=== PATIENT | male | born 1955 | race Caucasian/White ===

== ENCOUNTER 2017-02-24 16:01 | Emergency (ER) | payer OTHER ==
[2017-02-24 16:25] VITALS: BP 116/64; PULSE 65; TEMP 98.3; BMI 30.7
--- NOTE | 2017-02-24 17:34 | PDOC ---
History of Present Illness - General Chief Complaint: Eye Problem Stated Complaint: EYE PROBLEM Time Seen by Provider: 02/24/17 16:45 History Source: Patient - History of Present Illness Timing/Duration: other (2 days ago) Past History - Past Medical History Allergies/Adverse Reactions: Allergies Allergy/AdvReac Type Severity Reaction Status Date / Time No Known Allergies Allergy Verified 02/24/17 16:21 Home Medications: Ambulatory Orders No Home Medications 0 dose .ROUTE UTDICT 04/05/13 Cardiac Disorders: Yes ([place],STENT PLACEMENT) Diabetes: Yes HTN: Yes - Surgical History Abdominal Surgery: Yes (HERNIA X2) Cardiac Surgery: Yes (X1) - Psycho/Social/Smoking Cessation Hx Suicidal Ideation: No Smoking Status: Yes Smoking History: Current every day smoker Have you smoked in the past 12 months: Yes Number of Cigarettes Smoked Daily: 20 Information on smoking cessation initiated: No Review of Systems - Review of Systems HEENTM: Yes: Tearing. No: Eye Pain, Blurred Vision *Physical Exam - Vital Signs Last Vital Signs Temp Pulse Resp BP Pulse Ox 98.3 F 65 19 116/64 96 02/24/17 16:21 02/24/17 16:21 02/24/17 16:21 02/24/17 16:21 02/24/17 16:21 - Physical Exam General Appearance: Yes: Appropriately Dressed. No: Apparent Distress HEENT: positive: Normal Voice, Other (small black fb over R cornea in the 3 0 clock position, no fb under lid) Neck: positive: Tender, Supple Respiratory/Chest: negative: Respiratory Distress Integumentary: positive: Dry, Warm Neurologic: positive: Fully Oriented, Alert, Normal Mood/Affect Medical Decision Making - Medical Decision Making 02/24/17 17:28 62 yo M, no sig hx, here w/ fb sensation to R eye. Patient states he was helping a friend "cut up some metal" from the roof of his basement last 2 days ago and felt something go in his eye, but not sure what it was. States he irrigated eye with water and felt better, but then at some point started to have FB sensation w/ tearing. Denies any sig pain, photophobia, discharge or visual changes See exam FB to R eye Seen grossly as small black fb over cornea in the 3 0' clock position, ? metal, + uptake adjacently w/ meek lamp Unsuccessful retrieval w/ tetracaine and wet swab Will c/w optho to arrange eval today or tomorrow -erythromycin ointment for ? corneal abrasion -tetanus UTD 02/24/17 17:38 02/24/17 18:23 Case d/w Dr Johnson, who agrees w/ abx ointment and states pt to call office tomorrow to be seen. Pt given ointment in ED to go home with 02/24/17 18:26 *DC/Admit/Observation/Transfer Diagnosis at time of Disposition: Foreign body in eye Qualifiers: Encounter type: initial encounter Laterality: right Qualified Code(s): T15.91XA - Foreign body on external eye, part unspecified, right eye, initial encounter - Discharge Dispostion Disposition: HOME Condition at time of disposition: Good - Patient Instructions Printed Discharge Instructions: Corneal Abrasion Additional Instructions: Use erythromycin as directed and call Dr Chen of ophthalmology tomorrow after 10am at [phone] for an appointment Instill 1 cm ribbon of erythromycin ointment into affected eye every 4 hrs until for 7 days
[2017-02-24] MEDS ORDERED: ERYTHROMYCIN 0.5% OPHTHALMIC OINTMENT 3.5 GM TUBE ONE (18:27)
== END 2017-02-24 18:50 | disposition home or self-care (01) ==
LOC: JERFT 16:01
PROC: 08C8XZZ Extirpation of Matter from Right Cornea, External Approach (ICD-10-PCS; principal; 2017-02-24)
DX: T15.01XA Foreign body in cornea, right eye, initial encounter (principal); X58.XXXA Exposure to other specified factors, initial encounter; Y93.H3 Activity, building and construction; Y92.89 Other specified places as the place of occurrence of the external cause
CPT/HCPCS: 99281-25

== ENCOUNTER 2017-04-21 09:38 | Emergency (ER) | payer OTHER ==
[2017-04-21 09:43] VITALS: BP 145/80; PULSE 73; TEMP 98.7; BMI 30.7
--- NOTE | 2017-04-21 11:10 | PDOC ---
History of Present Illness - General Chief Complaint: Laceration Stated Complaint: LACERATED LT FINGER Time Seen by Provider: 04/21/17 10:02 History Source: Patient Exam Limitations: No Limitations - History of Present Illness Initial Comments: 04/21/17 11:03 Was using denies, slipped and excise the distal tip of his left fourth digit. 04/21/17 14:44 Occurred: reports: just prior to arrival Severity: reports: mild (left fourth digit) Pain Location: reports: none, upper extremity Method of Injury: Yes: direct blow Modifying Factors: improves with: None Associated Symptoms (Fall): denies symptoms Past History - Travel Traveled outside of the country in the last 30 days: No Close contact w/someone who was outside of country & ill: No - Past Medical History Allergies/Adverse Reactions: Allergies Allergy/AdvReac Type Severity Reaction Status Date / Time No Known Allergies Allergy Verified 04/21/17 09:43 Home Medications: Ambulatory Orders No Home Medications 0 dose .ROUTE UTDICT 04/05/13 Cardiac Disorders: Yes ([place],STENT PLACEMENT) Diabetes: Yes HTN: Yes - Surgical History Abdominal Surgery: Yes (HERNIA X2) Cardiac Surgery: Yes (X1) - Suicide/Smoking/Psychosocial Hx Smoking Status: Yes Smoking History: Current every day smoker Have you smoked in the past 12 months: Yes Number of Cigarettes Smoked Daily: 20 Information on smoking cessation initiated: Yes 'Breaking Loose' booklet given: 04/21/17 Hx Alcohol Use: No Drug/Substance Use Hx: No Substance Use Type: None Trauma Specific PMHX - Complaint Specific PMHX Back Injury: No Neck Injury: No Review of Systems - Review of Systems Able to Perform ROS?: Yes Is the patient limited Polish proficient: Yes Constitutional: Yes: Symptoms Reported, See HPI, Malaise HEENTM: No: Symptoms Reported Respiratory: No: Symptoms reported Musculoskeletal: Yes: Symptoms Reported, See HPI Integumentary: Yes: Symptoms Reported, See HPI All Other Systems: Reviewed and Negative *Physical Exam - Vital Signs Last Vital Signs Temp Pulse Resp BP Pulse Ox 98.7 F 73 19 145/80 100 04/21/17 09:41 04/21/17 09:41 04/21/17 09:41 04/21/17 09:41 04/21/17 09:41 - Physical Exam General Appearance: Yes: Nourished, Appropriately Dressed, Apparent Distress, Mild Distress HEENT: positive: OLIVE, Normal ENT Inspection, TMs Normal, Pharynx Normal Neck: positive: Supple Musculoskeletal: positive: Normal Inspection Extremity: positive: Normal Capillary Refill Integumentary: positive: Other (1 cm laceration to the distal tip of left fourth digit. No pulsatile bleeding, has full range of motion to finger and sensation intact) Neurologic: positive: community associate II-XII NML intact, Fully Oriented, Alert, Normal Mood/ Affect, Normal Response, Motor Strength 5/5 Procedures - Laceration/Wound Repair Left Finger Wound Length: to 2.5 cm Wound Explored: clean Wound's Depth, Shape: superficial Irrigated w/ Saline: Yes Progress Note - Progress Note Progress Note: Gelfoam applied to avulsion laceration with good hemostasis achieved, bulky dressing and splint applied. *DC/Admit/Observation/Transfer Diagnosis at time of Disposition: Laceration - Discharge Dispostion Disposition: HOME Condition at time of disposition: Stable Admit: No - Referrals Referrals: Mindi Almazan MD [Primary Care Provider] - - Patient Instructions Printed Discharge Instructions: DI for Laceration Repair Additional Instructions: Rest, elevate, avoid strenuous activity or heavy lifting until healed Leave dressing on for the next 48 hours, Then may remove outer Telfa dressing gently and wash area with soap and water. Careful not to remove Gelfoam/white bottom layer while changing dressing and washing hand gently Reapply dressing daily for the next 5 days On day #6 keep the wound protected and cover as needed until Gelfoam dressing fall away allowing wound to start to dry May use Tylenol or Motrin for pain relief Your tetanus/pertussis/diphtheria booster was updated today - Post Discharge Activity Forms/Work/School Notes: Back to Work
== END 2017-04-21 11:42 | disposition home or self-care (01) ==
LOC: JERFT 09:38
DX: S61.215A Laceration without foreign body of left ring finger without damage to nail, initial encounter (principal); W01.118A Fall on same level from slipping, tripping and stumbling with subsequent striking against other sharp object, initial encounter; Y93.89 Activity, other specified; Y92.038 Other place in apartment as the place of occurrence of the external cause; I25.2 Old myocardial infarction; I25.10 Atherosclerotic heart disease of native coronary artery without angina pectoris; I10 Essential (primary) hypertension; Z95.5 Presence of coronary angioplasty implant and graft; E11.9 Type 2 diabetes mellitus without complications; F17.210 Nicotine dependence, cigarettes, uncomplicated
CPT/HCPCS: 99281-25

== ENCOUNTER 2019-09-27 08:14 | Inpatient (IN) | payer OTHER ==
--- NOTE | 2019-09-27 08:32 | PDOC ---
History of Present Illness - General History Source: Patient Exam Limitations: No Limitations - History of Present Illness Initial Comments: Sourav Emery is a 64 yo M w a hx of Mi and stent, HLD, COPD, NIDDM, and heavy smoking history who presents to the [facility] er with 6 hours of left hand numbness and tingling. He states he thinks he is slowly losing control of his left hand pain. The patient states he was not able to sleep well last night and slept on his recliner with his arm over his head then when he woke up this morning at 2 am he was not able to feel his left hand. He thought it would subside but this morning at 7 am when the sensation did not go away he came to the ER because the numbness and tingling was bothering him. Patient endorses nausea but no emesis. - the patient endorses on and off burning chest discomfort for the past few months. He denies any radiation of the burning chest pain. - Patient recently diagnosed with bronchitis by Dr. Almazan and finished a course of amoxicillin Denies lightheadedness, denies worsening of pain with physical activity, denies vomiting, denies pain radiation, denies having a headache. PCP: Mindi Almazan PSH: Stent Social Hx: Smokes 1 PPD - states he quit today and put on a nicotine patch this morning. Allergies: NKA, NKDA <Thor Pizarro - Last Filed: 09/27/19 19:27> <Rica Gonzalez - Last Filed: 09/29/19 10:16> - General Chief Complaint: Head/Neck problem Stated Complaint: POS STROKE Time Seen by Provider: 09/27/19 08:22 NIH Stroke Scale - Last Known Well Date/Time & Onset Date Last Known Well: 09/26/19 Time Last Known Well: 20:00 - Initial Evaluation Level of consciousness: Alert Ask patient the month and their age: Answers both correctly Ask patient to open & close eyes; make fist and let go: Obeys both correctly Best gaze (horizontal eye movement): Normal Visual field testing: No visual field loss Facial paresis (Show teeth/raise eyebrows/close eyes tight): Normal symmetrical movement Motor Function: Left Arm: Normal Motor Function: Right Arm: Normal (extends arm 90 (or 45) degrees for 10 seconds without drift Motor Function: Left Leg: Normal (extends leg 30 degrees for 5 seconds without drift) Motor Function: Right Leg: Normal (extends leg 30 degrees for 5 seconds without drift) Limb Ataxia: No ataxia Sensory(Use pinprick test arms,legs,trunk,face/side to side): Mild to moderate decrease in sensation Best language (Describe picture, name items, read sentences): No Aphasia Dysarthria (read several words): Normal articulation Extinction and Inattention: No abnormality - Total Score NIH Stroke Scale Score: 1 <Thor Pizarro - Last Filed: 09/27/19 19:27> tPA Exclusion checklist 3-4.5h - Time Elapsed Date last known well: 09/26/19 Time last known well: 20:00 Elaspsed time: Day(s) and 23 Hour(s) and 27 Minutes - Thrombolytic Therapy Candidate Is patient eligible for thrombolytic therapy: No - Exclusion Criteria 3-4.5 hr SBP greater than 185 or DBP greater than 110mmHg despite tx: No Recent IC/spinal surgery,head trauma or stroke<3mos.: No Hx IC hemorrhage, IC neoplasm, AV malformation or aneurysm: No Active internal bleeding: No Blding diathesis(low plt ct, inc PTT,INR>1.7 or use of NOAC): No Symptoms suggest subarachnoid hemorrhage: No CT demonstrates multilobar infarct(>1/3 cerebral hemiphere): No Arterial puncture at noncompressible site in previous 7 days: No Blood glucose concentration less than 50mg/dL (2.7mmol/L): No - Relative Exclusion Criteria 3-4.5 hr Life expectancy <1 yr or severe co-morbid illness: No : No Patient/family refused: No Rapid improvement: No Stroke severity too mild: Yes Recent acute MT (w/in previous 3 months): No Seizure at onset with postictal residual neuro impairments: No Major surgery or serious trauma w/in previous 14 days: No Recent GI or hemorrhage (w/in previous 21 days): No - Add'l Relative Exclusion 3-4.5 hr Age > 80: No Hx of both diabetes AND prior ischemic stroke: No Taking an oral anticoagulant regardless of INR: No NIHSS >25: No - Ineligibility reason(s) Reasons No tPA given: Outside of window - delayed arrival, See reason(s) noted above <Thor Pizarro - Last Filed: 09/27/19 19:27> Past History - Past Medical History Cardiac Disorders: Yes (MT,STENT PLACEMENT) COPD: No Diabetes: Yes HTN: Yes - Surgical History Abdominal Surgery: Yes (HERNIA X2) Cardiac Surgery: Yes (X1) - Psycho Social/Smoking Cessation Hx Smoking Status: Yes Smoking History: Current every day smoker Have you smoked in the past 12 months: Yes Number of Cigarettes Smoked Daily: 20 Information on smoking cessation initiated: Yes 'Breaking Loose' booklet given: 04/21/17 Hx Alcohol Use: No Drug/Substance Use Hx: No Substance Use Type: None <Thor Pizarro - Last Filed: 09/27/19 19:27> <Rica Gonzalez - Last Filed: 09/29/19 10:16> - Past Medical History Allergies/Adverse Reactions: Allergies Allergy/AdvReac Type Severity Reaction Status Date / Time No Known Allergies Allergy Verified 09/27/19 08:15 Home Medications: Ambulatory Orders Aspirin 81 mg PO DAILY 09/27/19 Atorvastatin Ca [Lipitor] 80 mg PO DAILY 09/27/19 Lisinopril [Prinivil] 10 mg PO DAILY 09/27/19 Metoprolol Succinate [Toprol Xl] 50 mg PO DAILY 09/27/19 Sitagliptin Phosphate [Januvia] 100 mg PO DAILY 09/27/19 Acetaminophen [Tylenol] 650 mg PO PRN 09/28/19 Alcohol Antiseptic Pads [Alcohol Prep Pad] 1 each TP TID #100 med..pad 09/28/19 Aspirin Coated [Ecotrin -] 81 mg PO DAILY tablet.ec 09/28/19 Insulin Aspart [Novolog] 4 unit SQ TID #1 cartridge 09/28/19 Miscellaneous Medical Supply [Glucometer Device] 1 each SQ ASDIR #1 kit Miscellaneous Medical Supply [Glucometer Test Strips #100] 1 each SQ TID #1 box 09/28/19 Hardin, Safety [Easy Touch Fliplock Needle] 1 each MC TID #100 dis.needle 09/28 Review of Systems - Review of Systems Able to Perform ROS?: Yes Comments:: CONSTITUTIONAL: Absent: fever, no chills, no fatigue EYES: Absent: visual changes ENT: Absent: ear pain, no sore throat CARDIOVASCULAR: Absent: chest pain, no palpitations RESPIRATORY: Absent: cough, no SOB GI: Absent: abdominal pain, no nausea, no vomiting, no constipation, no diarrhea GENITOURINARY: Absent: dysuria, no frequency, no hematuria MUSKULOSKELETAL: Absent: back pain, no arthralgia, no myalgia SKIN: Absent: rash NEURO: Present: numbness/tingling Absent: headache <Thor Pizarro - Last Filed: 09/27/19 19:27> *Physical Exam - Vital Signs Last Vital Signs Temp Pulse Resp BP Pulse Ox 97.9 F 57 L 18 118/87 98 09/27/19 08:19 09/27/19 08:19 09/27/19 08:19 09/27/19 08:19 09/27/19 08:19 - Physical Exam GENERAL: Well-appearing, well-nourished. Mild distress. HEENT: Normocephalic, atraumatic. PERRL, EOM intact. CARDIOVASCULAR: Normal S1, S2. Regular rate and rhythm. PULMONARY: No evidence of respiratory distress. Lungs clear to auscultation bilaterally. No wheezing, rales or rhonchi. ABDOMEN: Soft, non-distended, non-tender. EXTREMITIES: Normal ROM in all four extremities. No gross deformities. SKIN: Warm, dry. No rash NEUROLOGICAL: Alert, awake, appropriate. Cranial nerves 2-12 intact. No deficits to light touch in face, upper extremities and lower extremities. No motor deficits in the in face, upper extremities and lower extremities. Normal speech. Gait is normal without ataxia. LEFT HAND: Normal sensation in ulnar, radial, and median nerve distrubutions. Full strength in every finger equal in bilateral hands. Full strength on abduction and adduction of lumbricals. 2+ radial and ulnar pulses. No discoloration. No focal tenderness. Full strength on wrist and elbow flexion and extension. <Thor Pizarro - Last Filed: 09/27/19 19:27> - Vital Signs Last Vital Signs Temp Pulse Resp BP Pulse Ox 98.2 F 77 18 139/79 95 09/29/19 05:46 09/29/19 05:46 09/29/19 05:46 09/29/19 05:46 09/28/19 21:00 <Rica Gonzalez - Last Filed: 09/29/19 10:16> ED Treatment Course - LABORATORY CBC & Chemistry Diagram: 09/27/19 08:20 09/27/19 08:20 <Thor Pizarro - Last Filed: 09/27/19 19:27> - LABORATORY CBC & Chemistry Diagram: 09/29/19 06:10 09/29/19 06:10 - ADDITIONAL ORDERS Additional order review: 09/27/19 08:20 RBC 5.10 MCV 92.7 MCHC 34.5 RDW 12.8 MPV 7.8 Neutrophils % 60.5 Lymphocytes % 25.1 Monocytes % 6.9 Eosinophils % 6.0 H Basophils % 1.5 - Medications Given in the ED: ED Medications Discontinued Medications Generic Name Dose Route Start Last Admin Trade Name Freq PRN Reason Stop Dose Admin Aspirin 162 mg 09/27/19 10:02 09/27/19 10:32 Asa - PO 09/27/19 10:03 162 mg ONCE ONE Administration Aspirin 81 mg 09/27/19 10:03 09/27/19 10:32 Asa - PO 09/27/19 10:04 81 mg ONCE ONE Administration Aspirin 325 mg 09/28/19 10:00 09/28/19 09:15 Ecotrin - PO 325 mg DAILY MARLENA Administration Atorvastatin Calcium 80 mg 09/27/19 11:05 09/27/19 11:25 Lipitor - PO 09/27/19 11:06 80 mg ONCE ONE Administration Influenza Virus Vaccine Quadrival 60 mcg 09/28/19 10:00 09/28/19 11:37 Flulaval Quad 9900-6930 IM 09/28/19 10:01 60 mcg .ONCE ONE Administration Insulin Aspart 10 units 09/27/19 10:12 09/27/19 10:44 Novolog Vial SQ 09/27/19 10:13 10 unit ONCE ONE Administration Protocol Insulin Aspart 1 vial 09/27/19 16:30 09/28/19 17:02 Novolog Vial Sliding Scale - SQ 2 unit ACHS MARLENA Administration Protocol <Rica Gonzalez - Last Filed: 09/29/19 10:16> Medical Decision Making - Medical Decision Making Sourav Emery is a 64 yo M w a hx of Mi and stent, HLD, COPD, NIDDM, and heavy smoking history who presents to the [facility] er with 6 hours of left hand numbness and tingling. He states he thinks he is slowly losing control of his left hand pain. The patient states he was not able to sleep well last night and slept on his recliner with his arm over his head then when he woke up this morning at 2 am he was not able to feel his left hand. He thought it would subside but this morning at 7 am when the sensation did not go away he came to the ER because the numbness and tingling was bothering him. Patient endorses nausea but no emesis. - the patient endorses on and off burning chest discomfort for the past few months. He denies any radiation of the burning chest pain. - Patient recently diagnosed with bronchitis by Dr. Almazan and finished a course of amoxicillin Denies lightheadedness, denies worsening of pain with physical activity, denies vomiting, denies pain radiation, denies having a headache. Vital Signs Temp Pulse Resp BP Pulse Ox 97.9 F 57 L 18 118/87 98 09/27/19 08:19 09/27/19 08:19 09/27/19 08:19 09/27/19 08:19 09/27/19 08:19 DDx IBNLT: CVA/TIA, ACS, electrolyte/metabolic disturbance, pinched nerve/ Tuesday night palsy/other radiculopathy, pneumonia/pneumothorax, arrythmia Plan: EKG, labs, CXR, Head CT, re-assess EKG: Sinus bradycardia of 53, LAD, narrow complexes, no ST elevations or depressions, Q waves in inferior and septal leads suggestive of old MT, QTc 395 , MN 174 CXR: Unremarkable Labs: Unremarkable Head CT: No acute pathology Disposition: Telemetry for stroke workup <Thor Pizarro - Last Filed: 09/27/19 19:27> Discharge - Discharge Information Problems reviewed: Yes - Admission Yes <Thor Pizarro - Last Filed: 09/27/19 19:27> <Rica Gonzalez - Last Filed: 09/29/19 10:16> - Discharge Information Clinical Impression/Diagnosis: Numbness and tingling in left hand, CVA (cerebral vascular accident) Condition: Stable
--- NOTE | 2019-09-27 08:47 | PDOC ---
Attending Attestation - Resident Resident Name: Thor Pizarro - ED Attending Attestation I have performed the following: I have examined & evaluated the patient, The case was reviewed & discussed with the resident, I agree w/resident's findings & plan - HPI HPI: 09/27/19 08:47 Sourav Emery is a 64 yo M w a hx of [place] s/p PCI on ASA, HTN, HLD, COPD, NIDDM, and heavy smoking history who presents to the [facility] er with 6 hours of left hand numbness and tingling at approx 2AM. He was last normal when he went to bedtime around 10am, but did not sleep well in the recliner. He states he thinks he is slowly losing control of his left hand with difficulty gripping. The patient states he was not able to sleep well last night and slept on his recliner with his arm over his head then when he woke up this morning at 2 am he was not able to feel his left hand. He thought it would subside but this morning at 7 am when the sensation did not go away he came to the ER because the numbness and tingling was bothering him. Denies lightheadedness, denies worsening of pain with physical activity, denies vomiting, denies pain radiation, denies having a headache. the patient endorses on and off burning chest discomfort for the past few months. He denies any radiation of the burning chest pain. no SOB. PCP: Mindi Almazan current smoker, stopped today. 09/27/19 08:47 09/27/19 09:15 - Physicial Exam PE: 09/27/19 08:47 Agree with the resident's HPI and PE as documented in the electronic medical record. NAD, well appearing, Alert, oriented to person time and place. EOMI, PERRL, nl conjunctiva, anicteric; neck supple. no cervical neck tenderness. lungs clear, RRR, no murmur. abdomen soft nontender. no rebound, guarding. Back nontender. TORO x4, no focal neuro deficits. No peripheral edema. normal color for ethnicity, WWP. No carotid bruit, CN II-XII grossly intact. 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 Sensation grossly intact to light touch with pin prick in all extremities, including the C1-T1 distribution. TORO x4. No cerebellar signs, no dysmetria, bilateral finger to nose equal and symmetric. Speech clear. 09/27/19 09:20 - Medical Decision Making 09/27/19 09:22 Vital Signs Temp Pulse Resp BP Pulse Ox 97.9 F 57 L 18 118/87 98 09/27/19 08:19 09/27/19 08:19 09/27/19 08:19 09/27/19 08:19 09/27/19 08:35 Differential diagnosis includes radiculopathy, neuropathy, CVA/stroke, ACS, arrhythmia, anemia, electrolyte/metabolic derangements. Vital signs reviewed within normal limits last normal at 10 am at bedtime, on indication for tpa, as no focal neuro deficits. Neurologically intact currently, msk exam also wnl. However patient subjectively still has symptoms of left upper extremity weakness and numbness which have been persistent. Could be radial nerve palsy from impingement of the brachial plexus but patient has no symptoms there. There is also no neck tenderness, no known trauma, no neck or back spasms noted. Given his persistent symptoms, will pursue stroke work-up as well as ACS work- up given his medical comorbidities. Currently no chest pain or shortness of breath. CT head, basic labs and lites, 09/27/19 10:13 Patient given aspirin full dose total. Insulin 10 units for hyperglycemia and appropriate glycemic control, given patient does have history of type 2 diabetes currently on Januvia, no home regimen of subcu insulin or sliding scale. Blood pressure is controlled. Head CT neg for acute pathology, will need MRI with higher sensitivity for cva given his symptoms otherwise labs and lytes/trop neg, reassuring, ECG sinus bradycardia, otherwise unremarkable, nonspecific T wave abnormalities admission telemetry for stroke evaluation/workup, serial troponins to rule out ACS, medical management. 09/27/19 11:40 Heart Score/ECG Review #1 ECG reviewed & interpreted by me at: 09:15 General ECG Interpretation: Sinus Rhythm, Normal Intervals Compared to previous ECG there are: Previous ECG unavail 09/27/19 09:26 EKG sinus bradycardia 53 bpm no interval abnormalities, narrow QRS, ST and T wave segments and morphology normal. Nonspecific T wave abnormalities
[2019-09-27 09:16] LABS: BASO % 1.5 % (0-2.0); HEMATOCRIT 47.3 % (35.4-49); HEMOGLOBIN 16.3 GM/dL (11.7-16.9); LYMPH % 25.1 % (8-40); MCHC 34.5 g/dl (32.0-35.9); MEAN CELL VOLUME 92.7 fl (80-96); MEAN PLT VOLUME 7.8 fl (7.5-11.1); MONO % 6.9 % (3.8-10.2); NEUT % 60.5 % (42.8-82.8); PLATELET COUNT 321 K/MM3 (134-434); RDW 12.8 % (11.9-15.9); WHITE BLOOD COUNT 8.2 K/mm3 (4.0-10.0)
[2019-09-27 09:45] LABS: ALBUMIN 3.6 g/dl (3.4-5.0); BILIRUBIN,TOTAL 0.4 mg/dL (0.2-1); BLOOD UREA NITROGEN 9.4 mg/dL (7-18); CALCIUM 9.3 mg/dL (8.5-10.1); POTASSIUM 4.5 mmol/L (3.5-5.1); TOT PROT 6.9 g/dl (6.4-8.2)
[2019-09-27] MEDS ORDERED: ASPIRIN 81 MG CHEWABLE TABLETS PO ONE ×2 (10:02→10:03)
[2019-09-27 10:03] LABS: INR 0.94 (0.83-1.09); PROTHROMBIN TIME (PATIENT) 11.1 SEC (9.7-13.0)
[2019-09-27 10:06] LABS: ACTIVATED PTT 34.5 SECONDS (25.2-36.5)
[2019-09-27] MEDS ORDERED: ASPIRIN 81 MG CHEWABLE TABLETS ONE (10:06)
[2019-09-27] MEDS ORDERED: INSULIN (NOVOLOG) ASPART 100 UNITS/ML 10ML VIAL SQ ONE (10:12)
[2019-09-27] MEDS ORDERED: ATORVASTATIN CA 80 MG TABLET (FP) PO ONE (11:05)
[2019-09-27] MEDS ORDERED: ATORVASTATIN CA 80 MG TABLET (FP) ONE (11:23)
--- NOTE | 2019-09-27 11:51 | EKG ---
Test Reason : Blood Pressure : / mmHG Vent. Rate : 053 BPM Atrial Rate : 053 BPM P-R Int : 174 ms QRS Dur : 106 ms QT Int : 422 ms P-R-T Axes : 063 -66 040 degrees QTc Int : 395 ms SINUS BRADYCARDIA LEFT AXIS DEVIATION INFERIOR INFARCT , AGE UNDETERMINED POSSIBLE ANTERIOR INFARCT , AGE UNDETERMINED ABNORMAL ECG NO PREVIOUS ECGS AVAILABLE Confirmed by NICOLE MACIAS MD ([id number]) on 09/27/2019 11:51:24 AM Referred By: Confirmed By:NICOLE MACIAS MD
--- NOTE | 2019-09-27 13:24 | HP ---
Admitting History and Physical - Primary Care Physician PCP: Mindi Almazan - Admission Chief Complaint: numbess and weakness to left arm History of Present Illness: Sourav Emery is a 64 yo M w a hx of [place] s/p PCI on ASA, HTN, HLD, COPD, NIDDM, and heavy smoking history(currently 1 ppd) who presents with left hand numbness and tingling at that began approx 2AM. He was last normal when he went to bedtime around 10am, slept in a recliner chair with arm elevated behing his head. Upon wakening he was not able to feel his left hand. He thought it would subside but this morning at 7 am when the sensation did not go away he came to the ER for further evaluation. 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) Pulmonary: Yes: COPD, Other Endocrine: Yes: Diabetes Mellitus - Past Surgical History Additional Past Surgical History: s/p [place] with PCI - Smoking History Smoking history: Current every day smoker Have you smoked in the past 12 months: Yes Aproximately how many cigarettes per day: 20 - Alcohol/Substance Use Hx Alcohol Use: No - Social History Usual Living Arrangement: Yes: Alone ADL: Independent History of Recent Travel: No Home Medications - Allergies Allergies/Adverse Reactions: Allergies Allergy/AdvReac Type Severity Reaction Status Date / Time No Known Allergies Allergy Verified 09/27/19 08:15 - Home Medications Home Medications: Ambulatory Orders Aspirin 81 mg PO DAILY 09/27/19 Atorvastatin Ca [Lipitor] 80 mg PO HS 09/27/19 Lisinopril [Prinivil] 10 mg PO DAILY 09/27/19 Metoprolol Succinate [Toprol Xl] 50 mg PO DAILY 09/27/19 Sitagliptin Phosphate [Januvia] 100 mg PO DAILY 09/27/19 Family Medical History Family History: Denies Review of Systems - Review of Systems Constitutional: reports: No Symptoms Eyes: reports: No Symptoms HENT: reports: No Symptoms Neck: reports: No Symptoms Cardiovascular: reports: No Symptoms Respiratory: reports: No Symptoms Gastrointestinal: reports: No Symptoms Genitourinary: reports: No Symptoms Breasts: reports: No Symptoms Reported Musculoskeletal: reports: No Symptoms Integumentary: reports: No Symptoms Neurological: reports: Numbness, Weakness (to left arm (started in hard and progressed to shoulder)) Endocrine: reports: No Symptoms Hematology/Lymphatic: reports: No Symptoms Psychiatric: reports: No Symptoms Physical Examination Vital Signs: Vital Signs Temperature 97.9 F 09/27/19 08:19 Pulse Rate 57 L 09/27/19 08:19 Respiratory Rate 18 09/27/19 08:19 Blood Pressure 118/87 09/27/19 08:19 O2 Sat by Pulse Oximetry (%) 98 09/27/19 08:35 Constitutional: Yes: Well Nourished, No Distress, Calm Eyes: Yes: WNL, Conjunctiva Clear, EOM Intact HENT: Yes: WNL, Atraumatic, Normocephalic Neck: Yes: WNL, Supple, Trachea Midline Cardiovascular: Yes: WNL, Regular Rate and Rhythm Respiratory: Yes: WNL, Regular, CTA Bilaterally Gastrointestinal: Yes: WNL, Normal Bowel Sounds ...Rectal Exam: Yes: Deferred Renal/: Yes: WNL Breast(s): Yes: WNL Musculoskeletal: Yes: WNL Extremities: Yes: WNL Edema: No Peripheral Pulses WNL: Yes Peripheral Pulses: Left Radial: 2+, Right Radial: 2+, Left Doralis Pedis: 2+, Right Dorsalis Pedis: 2+, Left Femoral: 2+, Right Femoral: 2+ Integumentary: Yes: WNL Neurological: Yes: Numbness (to left hand to shoulder. Hand grasp 4/5 to left. Full strength on abduction/adduction), Tingling, Weakness Labs: CBC, BMP 09/27/19 08:20 09/27/19 08:20 Imaging - Results Ultrasound: Report Reviewed (Carotid dopplers: prominent thickening in common carotid artery with moderate sized plaques. Moderate size plaques to right external carotid artery) Other: Report Reviewed (TTE: trace TR) Problem List - Problems (1) HTN (hypertension) Assessment/Plan: BP controlled in ED c/w lisinipril,toprol Code(s): I10 - ESSENTIAL (PRIMARY) HYPERTENSION (2) HLD (hyperlipidemia) Assessment/Plan: on atorvastatin 40mg at home questionable TIA/CVA high dose statin 80mg ordered low cholesterol diet lipid panel pending Code(s): E78.5 - HYPERLIPIDEMIA, UNSPECIFIED Qualifiers: Hyperlipidemia type: mixed hyperlipidemia Qualified Code(s): E78.2 - Mixed hyperlipidemia (3) COPD (chronic obstructive pulmonary disease) Assessment/Plan: not on any mediations Code(s): J44.9 - CHRONIC OBSTRUCTIVE PULMONARY DISEASE, UNSPECIFIED (4) Diabetes Assessment/Plan: BGN in 300s in ED BGM AC/HS with novolog sliding scale HgbA1C pending diabetic diet Code(s): E11.9 - TYPE 2 DIABETES MELLITUS WITHOUT COMPLICATIONS (5) Smoking addiction Assessment/Plan: activetly smoking until this morning-placed nicotibe patch and came to ED counseled on smoking cessation nicotine patch qd Code(s): F17.200 - NICOTINE DEPENDENCE, UNSPECIFIED, UNCOMPLICATED (6) Myocardial infarct Assessment/Plan: s/p PCI 3 years ago c/w asa Code(s): I21.9 - ACUTE MYOCARDIAL INFARCTION, UNSPECIFIED (7) TIA (transient ischemic attack) Assessment/Plan: numbness and weakness to left UE neurology consultation requested atorvastatin 80mg , ASA 325 given TTE noted Carotids with BL plaques, CT angio pending tele monitoring Code(s): G45.9 - TRANSIENT CEREBRAL ISCHEMIC ATTACK, UNSPECIFIED (8) Prophylactic measure Assessment/Plan: FEN Fluids: IVF gievn in ED, adequate PO intake Electrolytes: monitor & replete as needed Nutrition: diabetic/low chol/fat diet DVT moderate risk sq heparin, asa Dispo admitt to tele full code discharge planning Code(s): Z29.9 - ENCOUNTER FOR PROPHYLACTIC MEASURES, UNSPECIFIED (9) Numbness and tingling in left hand Assessment/Plan: TIA/CVA work up in progress PT requested fall precautions Code(s): R20.0 - ANESTHESIA OF SKIN; R20.2 - PARESTHESIA OF SKIN Visit type - Emergency Visit Emergency Visit: Yes ED Registration Date: 09/27/19 Care time: The patient presented to the Emergency Department on the above date and was hospitalized for further evaluation of their emergent condition. - New Patient This patient is new to me today: Yes Date on this admission: 09/27/19 - Critical Care Critical Care patient: No
--- NOTE | 2019-09-27 15:38 | ECHO ---
Name: DESMOND MARTIN Exam:Adult Echocardiogram Study Date: 09/27/2019 02:58 PM Age: 64 yrs Reason For Study: cva/tia MMode/2D Measurements & Calculations IVSd: 0.87 cm Ao root diam: 3.1 cm LVIDd: 4.8 cm LA dimension: 2.8 cm LVIDs: 3.1 cm LVPWd: 1.1 cm LVPWs: 1.4 cm EDV(Teich): 107.3 ml ESV(Teich): 37.0 ml LVOT diam: 1.9 cm LAV (MOD-bp): 44.1 ml RV S Aaron: 13.3 cm/sec Doppler Measurements & Calculations MV E max aaron: 42.7 cm/sec Ao V2 max: 156.4 cm/sec MV A max aaron: 76.6 cm/sec Ao max P.8 mmHg MV E/A: 0.56 MELANY(V,D): 1.7 cm2 MV dec time: 0.19 sec LV V1 max P.4 mmHg PA V2 max: 115.4 cm/sec LV V1 max: 92.2 cm/sec PA max P.3 mmHg Med Peak E' Aaron: 6.0 cm/sec Med E/e': 7.1 Lat Peak E' Aaron: 8.6 cm/sec Lat E/e': 5.0 Procedure A complete two-dimensional transthoracic echocardiogram was performed (2D, M-mode, Doppler and color flow Doppler). Left Ventricle The left ventricular size, thickness and function are normal. The left ventricular ejection fraction is normal. Ejection Fraction = 55-60%. The left ventricular wall motion is normal. Right Ventricle The right ventricle is normal in size and function. Atria Normal left and right atrial size and function. Mitral Valve There is no mitral regurgitation noted. Tricuspid Valve There is trace tricuspid regurgitation. There was insufficient TR detected to calculate RV systolic p ressure. Aortic Valve No hemodynamically significant valvular aortic stenosis. No aortic regurgitation is present. Pulmonic Valve There is no pulmonic valvular regurgitation. Great Vessels The aortic root is normal size. Pericardium/Pleura There is no pericardial effusion. Interpretation Summary The left ventricular size, thickness and function are normal The right ventricle is normal in size and function. There is trace tricuspid regurgitation. MD Thee Estrada 09/27/2019 03:38 PM
[2019-09-27] MEDS ORDERED: ACETAMINOPHEN 325 MG TABLET (FP) ONE (16:34)
[2019-09-27] MEDS: ACETAMINOPHEN 325 MG TABLET (FP) PO PRN ×2 (16:40→23:03)
[2019-09-27] MEDS: INSULIN SLIDING SCALE (NOVOLOG) 1 VIAL SQ SCH ×2 (16:41→22:14)
[2019-09-27] MEDS: NICOTINE 14 MG/24 HOURS TOPICAL PATCH TD SCH (17:00)
[2019-09-27] MEDS ORDERED: ATORVASTATIN CA 80 MG TABLET (FP) PO SCH (22:00)
[2019-09-27] MEDS: HEPARIN NA (PORCINE) 5,000 UNITS/ML 1ML VIAL SQ SCH (22:13)
[2019-09-27 23:53] VITALS: BMI 28.9
[2019-09-28] MEDS: INSULIN SLIDING SCALE (NOVOLOG) 1 VIAL SQ SCH ×4 (06:41→21:51)
[2019-09-28 06:47] LABS: BASO % 0.9 % (0-2.0); EOS % 6.1 % (0-4.5); HEMATOCRIT 47.5 % (35.4-49); HEMOGLOBIN 16.4 GM/dL (11.7-16.9); MCH 31.7 pg (25.7-33.7); MCHC 34.6 g/dl (32.0-35.9); MEAN CELL VOLUME 91.7 fl (80-96); MEAN PLT VOLUME 7.7 fl (7.5-11.1); MONO % 6.9 % (3.8-10.2); NEUT % 64.1 % (42.8-82.8); PLATELET COUNT 337 K/MM3 (134-434); RBC 5.18 M/mm3 (4.00-5.60); RDW 12.9 % (11.9-15.9); WHITE BLOOD COUNT 8.7 K/mm3 (4.0-10.0)
[2019-09-28 07:27] LABS: ALBUMIN 3.6 g/dl (3.4-5.0); ALK PHOS 104 U/L (45-117); ANION GAP 7 MMOL/L (8-16); BILIRUBIN,TOTAL 0.4 mg/dL (0.2-1); CALCIUM 9.2 mg/dL (8.5-10.1); CHLORIDE 105 mmol/L (98-107); CO2 25 mmol/L (21-32); CREATININE 0.9 mg/dL (0.55-1.3); GLUCOSE,RANDOM 221 mg/dL (74-106); MAGNESIUM 1.9 mg/dL (1.8-2.4); POTASSIUM 4.2 mmol/L (3.5-5.1); SGOT/AST 9 U/L (15-37); SGPT/ALT 24 U/L (13-61); SODIUM 137 mmol/L (136-145); TOT PROT 6.8 g/dl (6.4-8.2)
[2019-09-28] MEDS ORDERED: PT OWN MED DRAWER 7, Y5N ONE ×2 (09:09→09:50)
[2019-09-28] MEDS: HEPARIN NA (PORCINE) 5,000 UNITS/ML 1ML VIAL SQ SCH ×2 (09:14→21:49)
[2019-09-28] MEDS: LISINOPRIL 10 MG TABLET (FP) PO SCH (09:15)
--- NOTE | 2019-09-28 09:39 | CON.CARD ---
Consult Consult Specialty:: Cardiology Referred by:: Dr. Mayer Reason for Consultation:: Left hand numbness - History of Present Illness Chief Complaint: L hand numbness History of Present Illness: 64 yo M w a hx of [place] s/p PCI on ASA, HTN, HLD, COPD, NIDDM, and heavy smoking history(currently 1 ppd) who presents with left hand numbness and tingling at that began approx 2AM. He was last normal when he went to bedtime around 10am, slept in a recliner chair with arm elevated behing his head. Upon wakening he was not able to feel his left hand. He thought it would subside but this morning at 7 am when the sensation did not go away he came to the ER for further evaluation. This numbness is not his anginal equivalent. He is able to walk 2-3 blocks and 1-2 flights of stairs without chest pain. TnI negative x 1 Echo is normal. 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) Pulmonary: Yes: COPD, Other Endocrine: Yes: Diabetes Mellitus - Alcohol/Substance Use Hx Alcohol Use: No - Smoking History Smoking history: Current every day smoker Have you smoked in the past 12 months: Yes Aproximately how many cigarettes per day: 20 - Social History ADL: Independent History of Recent Travel: No Home Medications - Allergies Allergies/Adverse Reactions: Allergies Allergy/AdvReac Type Severity Reaction Status Date / Time No Known Allergies Allergy Verified 09/27/19 08:15 - Home Medications Home Medications: Ambulatory Orders Aspirin 81 mg PO DAILY 09/27/19 Atorvastatin Ca [Lipitor] 80 mg PO DAILY 09/27/19 Lisinopril [Prinivil] 10 mg PO DAILY 09/27/19 Metoprolol Succinate [Toprol Xl] 50 mg PO DAILY 09/27/19 Sitagliptin Phosphate [Januvia] 100 mg PO DAILY 09/27/19 Acetaminophen [Tylenol] 650 mg PO PRN 09/28/19 Family Medical History Family History: Unremarkable (not pertinent to this presentation) Review of Systems Findings/Remarks: see HPI - Review of Systems Constitutional: reports: No Symptoms Eyes: reports: No Symptoms HENT: reports: No Symptoms Neck: reports: No Symptoms Cardiovascular: reports: No Symptoms Gastrointestinal: reports: No Symptoms Genitourinary: reports: No Symptoms Breasts: reports: No Symptoms Reported Musculoskeletal: reports: No Symptoms Integumentary: reports: No Symptoms Neurological: reports: Parasthesia, Other (Left hand numbness) - Risk Factors Known Risk Factors: Yes: Other (Known CAD) Vital Signs: Vital Signs Temperature 98.3 F 09/28/19 06:00 Pulse Rate 74 09/28/19 06:00 Respiratory Rate 18 09/28/19 06:00 Blood Pressure 116/71 09/28/19 06:00 O2 Sat by Pulse Oximetry (%) 97 09/27/19 21:00 Constitutional: Yes: No Distress, Calm Eyes: Yes: Conjunctiva Clear HENT: Yes: Atraumatic Neck: Yes: Supple, Trachea Midline Respiratory: Yes: CTA Bilaterally Gastrointestinal: Yes: Soft (NT) Cardiovascular: Yes: Regular Rate and Rhythm JVD: No Carotid Bruit: No Heart Sounds: Yes: S1, S2 (rrr) Edema: No Peripheral Pulses WNL: Yes Neurological: Yes: Alert, Oriented - Other Data Labs, Other Data: CBC, BMP 09/28/19 06:10 09/28/19 06:10 INR, PTT INR 0.94 (0.83-1.09) 09/27/19 08:20 Troponin, BNP 09/27/19 08:20 Troponin I < 0.02 Troponin, BNP 09/27/19 08:20 Troponin I < 0.02 Sinus chacho, cannot r/o old IWMI, Poor R wave progression TELE: NSR, aritfact Imaging - Results Cat Scan: Report Reviewed EKG: Image Reviewed Assessment/Plan IMP: New left arm/hand numbness, r/o CVA History of ASHD REC: 1. Tele 2. MRI brain, further reccs as per Neuro 3. Cont ASA, statin, beta surinder Will follow
[2019-09-28] MEDS ORDERED: ASPIRIN 325 MG ENTERIC COATED TABLET (FP) PO SCH (10:00)
[2019-09-28] MEDS ORDERED: FLU VACCINE QUAD 60 MCG/0.5 ML (MDV 19-20) IM ONE (10:00)
--- NOTE | 2019-09-28 10:09 | CON.NEURO ---
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) Pulmonary: Yes: COPD, Other Endocrine: Yes: Diabetes Mellitus - Alcohol/Substance Use Hx Alcohol Use: No - Smoking History Smoking history: Current every day smoker Have you smoked in the past 12 months: Yes Aproximately how many cigarettes per day: 20 - Social History ADL: Independent History of Recent Travel: No Home Medications - Allergies Allergies/Adverse Reactions: Allergies Allergy/AdvReac Type Severity Reaction Status Date / Time No Known Allergies Allergy Verified 09/27/19 08:15 - Home Medications Home Medications: Ambulatory Orders Aspirin 81 mg PO DAILY 09/27/19 Atorvastatin Ca [Lipitor] 80 mg PO DAILY 09/27/19 Lisinopril [Prinivil] 10 mg PO DAILY 09/27/19 Metoprolol Succinate [Toprol Xl] 50 mg PO DAILY 09/27/19 Sitagliptin Phosphate [Januvia] 100 mg PO DAILY 09/27/19 Acetaminophen [Tylenol] 650 mg PO PRN 09/28/19 Physical Exam-Neuro Vital Signs: Vital Signs Temperature 98.3 F 09/28/19 06:00 Pulse Rate 74 09/28/19 06:00 Respiratory Rate 18 09/28/19 06:00 Blood Pressure 116/71 09/28/19 06:00 O2 Sat by Pulse Oximetry (%) 97 09/27/19 21:00 Labs: CBC, BMP 09/28/19 06:10 09/28/19 06:10 INR, PTT INR 0.94 (0.83-1.09) 09/27/19 08:20 Assessment/Plan cc Left hand weakness and numbness HPI 64 year old male history of [place] s/p PCI, HTN, HLD, COPD, NIDDM, Smoker . Patient has been ahving left hand numbness and he woke up with these symptoms and was admitted for suspected stroke. Patient joselo any neck pain, no right arm pain. He does have tingling and numbness in lowere extremity, suspected ? neuropahty. Patient symptoms of left arm numbness has improved, but feeling of mild weakness. PMH CAD,HTN,HLD, ID ,COD,DM Allergies/Adverse Reactions: Allergies Allergy/AdvReac Type Severity Reaction Status Date / Time No Known Allergies Allergy Verified 09/27/19 08:15 Home Medications: Aspirin 81 mg PO DAILY 09/27/19 Atorvastatin Ca [Lipitor] 80 mg PO HS 09/27/19 Lisinopril [Prinivil] 10 mg PO DAILY 09/27/19 Metoprolol Succinate [Toprol Xl] 50 mg PO DAILY 09/27/19 Sitagliptin Phosphate [Januvia] 100 mg PO DAILY 09/27/19 ROS,FH, reviewed in chart NEUROLOGICAL EXAMINATION Alert oriented x 3, speech is normal, neck is supple vss eomi, pupils reactive no face asymmetry motor 5/5 all ext there is subjective left hand weakness sensation is normal reflex are generalized diminsihed ct head mri of brain pending carotid ultrasound is wnl Assessment/Plan 64 year old male history of htn, hld, dm, mi came with left hand weakness and numbnes suspected stroke vs cts Plan: mri of brain continue aspirin and statin pt , speech and dvt prophylaxis smokign cessation stroke education once mri of brain is negative, he can be discharged and follow up outpatient Thanking you so much Dante Ramirez MD
--- NOTE | 2019-09-28 10:16 | PN ---
Physical Exam: SUBJECTIVE: Patient seen and examined OBJECTIVE: left arm numbness/tingling improving also has numbness of left 2nd and 3rd toes for a few months uncontrolled dm, does not check bgms at home. hmga1c 11.7 will need insulin on d/c will start teaching patient how to use sliding scale and self inject --- Patient is a 64 year old male history of [place] s/p PCI on ASA, HTN, HLD, COPD, NIDDM, and heavy smoking history (currently 1 ppd) who presents with left hand numbness and tingling. Per brain MRI, multiple acute/subacute lacunar infarcts in the right occipital lobe as well as in the right posterior frontal and parietal lobe superiorly. Vital Signs Period Temp Pulse Resp BP Sys/Boo Pulse Ox Last 24 Hr 98.1 F-98.8 F 61-74 18-18 116-143/69-79 95-97 GENERAL: The patient is awake, alert, and fully oriented, in no acute distress. HEAD: Normal with no signs of trauma. EYES: PERRL, extraocular movements intact, sclera anicteric, conjunctiva clear. No ptosis. ENT: Ears normal, nares patent, oropharynx clear without exudates, moist mucous membranes. NECK: Trachea midline, full range of motion, supple. LUNGS: Breath sounds equal, clear to auscultation bilaterally, no wheezes HEART: Regular rate and rhythm ABDOMEN: Soft, nontender, nondistended, normoactive bowel sounds, EXTREMITIES: no edema. NEUROLOGICAL: Normal speech, gait not observed. upper arms 5/5, lower legs 5/ 5. ambulating in room, speech clear, PSYCH: Normal mood, normal affect. SKIN: Warm, dry, normal turgor, no rashes or lesions noted Laboratory Results - last 24 hr 09/27/19 09/27/19 09/27/19 08:20 08:50 16:38 WBC RBC Hgb Hct MCV MCH MCHC RDW Plt Count MPV Absolute Neuts (auto) Neutrophils % Lymphocytes % Monocytes % Eosinophils % Basophils % Nucleated RBC % Sodium 133 L Potassium 4.5 Chloride 100 Carbon Dioxide 26 Anion Gap 7 L BUN 9.4 Creatinine 1.0 Est GFR (CKD-EPI)AfAm 93.08 Est GFR (CKD-EPI)NonAf 80.31 POC Glucometer 125 Random Glucose 369 H Hemoglobin A1c % 11.7 H Calcium 9.3 Magnesium 2.0 Total Bilirubin 0.4 AST 12 L ALT 26 Alkaline Phosphatase 104 Total Protein 6.9 Albumin 3.6 Triglycerides 283 H Cholesterol 191 Total LDL Cholesterol 117 H HDL Cholesterol 36 L 09/27/19 09/28/19 09/28/19 22:12 06:10 06:10 WBC 8.7 RBC 5.18 Hgb 16.4 Hct 47.5 MCV 91.7 MCH 31.7 MCHC 34.6 RDW 12.9 Plt Count 337 MPV 7.7 Absolute Neuts (auto) 5.5 Neutrophils % 64.1 Lymphocytes % 22.0 Monocytes % 6.9 Eosinophils % 6.1 H Basophils % 0.9 Nucleated RBC % 0 Sodium 137 Potassium 4.2 Chloride 105 Carbon Dioxide 25 Anion Gap 7 L BUN 12.0 Creatinine 0.9 Est GFR (CKD-EPI)AfAm 105.72 Est GFR (CKD-EPI)NonAf 91.22 POC Glucometer 178 Random Glucose 221 H Hemoglobin A1c % Calcium 9.2 Magnesium 1.9 Total Bilirubin 0.4 AST 9 L ALT 24 Alkaline Phosphatase 104 Total Protein 6.8 Albumin 3.6 Triglycerides Cholesterol Total LDL Cholesterol HDL Cholesterol 09/28/19 06:36 WBC RBC Hgb Hct MCV MCH MCHC RDW Plt Count MPV Absolute Neuts (auto) Neutrophils % Lymphocytes % Monocytes % Eosinophils % Basophils % Nucleated RBC % Sodium Potassium Chloride Carbon Dioxide Anion Gap BUN Creatinine Est GFR (CKD-EPI)AfAm Est GFR (CKD-EPI)NonAf POC Glucometer 232 Random Glucose Hemoglobin A1c % Calcium Magnesium Total Bilirubin AST ALT Alkaline Phosphatase Total Protein Albumin Triglycerides Cholesterol Total LDL Cholesterol HDL Cholesterol Active Medications Generic Name Dose Route Start Last Admin Trade Name Igorq PRN Reason Stop Dose Admin Acetaminophen 650 mg 09/27/19 16:27 09/27/19 23:03 Tylenol - PO 650 mg Q6H PRN Administration PAIN LEVEL 1-5 Aspirin 325 mg 09/28/19 10:00 09/28/19 09:15 Ecotrin - PO 325 mg DAILY MARLENA Administration Atorvastatin Calcium 80 mg 09/28/19 22:00 Lipitor - PO HS MARLENA Heparin Sodium (Porcine) 5,000 unit 09/27/19 22:00 09/28/19 09:14 Heparin - SQ 5,000 unit BID MARLENA Administration Insulin Aspart 1 vial 09/27/19 16:30 09/28/19 06:41 Novolog Vial Sliding Scale - SQ 4 unit ACHS MARLENA Administration Protocol Lisinopril 10 mg 09/28/19 10:00 09/28/19 09:15 Prinivil PO 10 mg DAILY MARLENA Administration Metoprolol Succinate 50 mg 09/28/19 10:00 09/28/19 09:15 Toprol Xl - PO 50 mg DAILY MARLENA Administration Nicotine 14 mg 09/27/19 16:15 09/27/19 17:00 Nicoderm Patch - TD 14 mg DAILY MARLENA Administration ASSESSMENT/PLAN: Problem List - Problems (1) CVA (cerebral vascular accident) Assessment/Plan: Per brain MRI, multiple acute/subacute lacunar infarcts in the right occipital lobe as well as in the right posterior frontal and parietal lobe superiorly. discussed findings with neurologist who recommended patient to be started on plavix 75mg daily per cardiology, patient to continue tele monitoring to rule out afib as cause of multiple acute strokes per stroke protocol physical therapy asa 81mg daily lipitor 80mg patient will need better control of DM, he is being taught how to self inject insulin (only on Januvia at home). meds and supplies called in. Code(s): I63.9 - CEREBRAL INFARCTION, UNSPECIFIED (2) Diabetes Assessment/Plan: uncontrolled will need to be sent home with sliding scale/insulin a1c 11.7 endocrinology consult as an outpatient Code(s): E11.9 - TYPE 2 DIABETES MELLITUS WITHOUT COMPLICATIONS (3) HLD (hyperlipidemia) Assessment/Plan: on lipitor 80 Code(s): E78.5 - HYPERLIPIDEMIA, UNSPECIFIED Qualifiers: Hyperlipidemia type: mixed hyperlipidemia Qualified Code(s): E78.2 - Mixed hyperlipidemia (4) HTN (hypertension) Assessment/Plan: controlled Code(s): I10 - ESSENTIAL (PRIMARY) HYPERTENSION (5) Numbness and tingling in left hand Assessment/Plan: has CVA. physical therapy, may need OT therapy also Code(s): R20.0 - ANESTHESIA OF SKIN; R20.2 - PARESTHESIA OF SKIN (6) DVT prophylaxis Assessment/Plan: on heparin Code(s): Z29.9 - ENCOUNTER FOR PROPHYLACTIC MEASURES, UNSPECIFIED Visit type - Emergency Visit Emergency Visit: Yes ED Registration Date: 09/27/19 Care time: The patient presented to the Emergency Department on the above date and was hospitalized for further evaluation of their emergent condition. - New Patient This patient is new to me today: Yes Date on this admission: 09/28/19 - Critical Care Critical Care patient: No - Discharge Referral Referred to [facility] Med P.C.: No
[2019-09-28] MEDS: NICOTINE 14 MG/24 HOURS TOPICAL PATCH TD SCH (11:39)
[2019-09-28] MEDS: CLOPIDOGREL BISULFATE 75 MG TABLET (FP) PO SCH (15:09)
[2019-09-28] MEDS: ACETAMINOPHEN 325 MG TABLET (FP) PO PRN (15:14)
[2019-09-28] MEDS ORDERED: ATORVASTATIN CA 80 MG TABLET (FP) PO SCH (22:00)
[2019-09-28] MEDS ORDERED: INSULIN (LEVEMIR) 100 UNITS/ML UNITS SQ SCH (22:00)
[2019-09-29] MEDS: INSULIN SLIDING SCALE (NOVOLOG) 1 VIAL SQ SCH ×2 (06:13→11:29)
[2019-09-29 06:44] LABS: BASO % 0.9 % (0-2.0); EOS % 5.4 % (0-4.5); HEMATOCRIT 48.1 % (35.4-49); HEMOGLOBIN 16.5 GM/dL (11.7-16.9); LYMPH % 20.1 % (8-40); MCH 31.7 pg (25.7-33.7); MCHC 34.4 g/dl (32.0-35.9); MEAN CELL VOLUME 92.1 fl (80-96); MEAN PLT VOLUME 7.8 fl (7.5-11.1); MONO % 7.9 % (3.8-10.2); NEUT % 65.7 % (42.8-82.8); PLATELET COUNT 308 K/MM3 (134-434); RBC 5.22 M/mm3 (4.00-5.60); RDW 12.8 % (11.9-15.9); WHITE BLOOD COUNT 8.1 K/mm3 (4.0-10.0)
[2019-09-29 07:05] LABS: ALBUMIN 3.4 g/dl (3.4-5.0); BILIRUBIN,TOTAL 0.8 mg/dL (0.2-1); BLOOD UREA NITROGEN 12.1 mg/dL (7-18); CALCIUM 8.9 mg/dL (8.5-10.1); CREATININE 0.8 mg/dL (0.55-1.3); MAGNESIUM 1.8 mg/dL (1.8-2.4); POTASSIUM 4.1 mmol/L (3.5-5.1); TOT PROT 6.6 g/dl (6.4-8.2)
--- NOTE | 2019-09-29 09:03 | PN ---
Physical Exam: SUBJECTIVE: Patient seen and examined OBJECTIVE: Last Vital Signs Temp Pulse Resp BP Pulse Ox 98.2 F 77 18 139/79 95 09/29/19 05:46 09/29/19 05:46 09/29/19 05:46 09/29/19 05:46 09/28/19 21:00 GENERAL: The patient is awake, alert, and fully oriented, in no acute distress. Laboratory Results - last 24 hr Active Medications Current Medications Acetaminophen (Tylenol -) 650 mg PO Q6H PRN PRN Reason: PAIN LEVEL 1-5 Last Admin: 09/28/19 15:14 Dose: 650 mg Aspirin (Ecotrin -) 81 mg PO DAILY [facility] Atorvastatin Calcium (Lipitor -) 80 mg PO HS [facility] Last Admin: 09/28/19 21:56 Dose: 80 mg Clopidogrel Bisulfate (Plavix -) 75 mg PO DAILY [facility] Last Admin: 09/28/19 15:09 Dose: 75 mg Heparin Sodium (Porcine) (Heparin -) 5,000 unit SQ BID [facility] Last Admin: 09/28/19 21:49 Dose: 5,000 unit Insulin Aspart (Novolog Vial Sliding Scale -) 1 vial SQ [facility]; Protocol Last Admin: 09/29/19 06:13 Dose: 6 units Insulin Detemir (Levemir Vial) 5 units SQ [facility] Last Admin: 09/28/19 21:49 Dose: 5 units Lisinopril (Prinivil) 10 mg PO DAILY [facility] Last Admin: 09/28/19 09:15 Dose: 10 mg Metoprolol Succinate (Toprol Xl -) 50 mg PO DAILY [facility] Last Admin: 09/28/19 09:15 Dose: 50 mg Nicotine (Nicoderm Patch -) 14 mg TD DAILY [facility] Last Admin: 09/28/19 11:39 Dose: 14 mg Home Medications Medication Instructions Recorded Aspirin 81 mg PO DAILY 09/27/19 Atorvastatin Ca [Lipitor] 80 mg PO DAILY 09/27/19 Lisinopril [Prinivil] 10 mg PO DAILY 09/27/19 Metoprolol Succinate [Toprol Xl] 50 mg PO DAILY 09/27/19 Sitagliptin Phosphate [Januvia] 100 mg PO DAILY 09/27/19 Acetaminophen [Tylenol] 650 mg PO PRN 09/28/19 Alcohol Antiseptic Pads [Alcohol 1 each TP TID #100 med..pad 09/28/19 Prep Pad] Aspirin Coated [Ecotrin -] 81 mg PO DAILY tablet.ec 09/28/19 Insulin Aspart [Novolog] 4 unit SQ TID #1 cartridge 09/28/19 Miscellaneous Medical Supply 1 each SQ ASDIR #1 kit 09/28/19 [Glucometer Device] Miscellaneous Medical Supply 1 each SQ TID #1 box 09/28/19 [Glucometer Test Strips #100] Kamrar, Safety [Easy Touch 1 each MC TID #100 dis.needle 09/28/19 Fliplock Needle] ASSESSMENT/PLAN: (1) CVA (cerebral vascular accident) Assessment/Plan: Per brain MRI, multiple acute/subacute lacunar infarcts in the right occipital lobe as well as in the right posterior frontal and parietal lobe superiorly. discussed findings with neurologist who recommended patient to be started on plavix 75mg daily per cardiology, patient to continue tele monitoring to rule out afib as cause of multiple acute strokes per stroke protocol physical therapy asa 81mg daily lipitor 80mg patient will need better control of DM, he is being taught how to self inject insulin (only on Januvia at home). meds and supplies called in. (2) Diabetes Assessment/Plan: uncontrolled will need to be sent home with sliding scale/insulin a1c 11.7 endocrinology consult as an outpatient HTN metoprolol 50 lisinopril 10 ATTENDING PHYSICIAN STATEMENT I saw and evaluated the patient. I reviewed the resident's note and discussed the case with the resident. I agree with the resident's findings and plan as documented. SUBJECTIVE: OBJECTIVE: ASSESSMENT AND PLAN:
[2019-09-29] MEDS ORDERED: PT OWN MED DRAWER 7, Y5N ONE (09:23)
[2019-09-29] MEDS: HEPARIN NA (PORCINE) 5,000 UNITS/ML 1ML VIAL SQ SCH (09:29)
[2019-09-29] MEDS: LISINOPRIL 10 MG TABLET (FP) PO SCH (09:29)
[2019-09-29] MEDS: CLOPIDOGREL BISULFATE 75 MG TABLET (FP) PO SCH (09:29)
--- NOTE | 2019-09-29 09:54 | PN ---
Progress Note, Physician Chief Complaint: Multiple R occipital CVAs TELE: NSR NO CP, SOB - Current Medication List Current Medications: Active Medications Acetaminophen (Tylenol -) 650 mg PO Q6H PRN PRN Reason: PAIN LEVEL 1-5 Last Admin: 09/28/19 15:14 Dose: 650 mg Aspirin (Ecotrin -) 81 mg PO DAILY [facility] Last Admin: 09/29/19 09:29 Dose: 81 mg Atorvastatin Calcium (Lipitor -) 80 mg PO HS [facility] Last Admin: 09/28/19 21:56 Dose: 80 mg Clopidogrel Bisulfate (Plavix -) 75 mg PO DAILY [facility] Last Admin: 09/29/19 09:29 Dose: 75 mg Heparin Sodium (Porcine) (Heparin -) 5,000 unit SQ BID [facility] Last Admin: 09/29/19 09:29 Dose: 5,000 unit Insulin Aspart (Novolog Vial Sliding Scale -) 1 vial SQ [facility]; Protocol Last Admin: 09/29/19 06:13 Dose: 6 units Insulin Detemir (Levemir Vial) 5 units SQ [facility] Last Admin: 09/28/19 21:49 Dose: 5 units Lisinopril (Prinivil) 10 mg PO DAILY [facility] Last Admin: 09/29/19 09:29 Dose: 10 mg Metoprolol Succinate (Toprol Xl -) 50 mg PO DAILY [facility] Last Admin: 09/29/19 09:29 Dose: 50 mg Nicotine (Nicoderm Patch -) 14 mg TD DAILY [facility] Last Admin: 09/28/19 11:39 Dose: 14 mg - Objective Vital Signs: Vital Signs Temperature 98.2 F 09/29/19 05:46 Pulse Rate 77 09/29/19 05:46 Respiratory Rate 18 09/29/19 05:46 Blood Pressure 139/79 09/29/19 05:46 O2 Sat by Pulse Oximetry (%) 95 09/28/19 21:00 Constitutional: Yes: No Distress, Calm Cardiovascular: Yes: Regular Rate and Rhythm Respiratory: Yes: CTA Bilaterally Gastrointestinal: Yes: Soft Edema: No Neurological: Yes: Alert Labs: CBC, BMP 09/29/19 06:10 09/29/19 06:10 INR, PTT INR 0.94 (0.83-1.09) 09/27/19 08:20 Laboratory Tests 09/29/19 09/29/19 06:10 06:10 WBC 8.1 Hgb 16.5 Plt Count 308 Sodium 136 Potassium 4.1 Creatinine 0.8 ALT 23 Alkaline Phosphatase 98 - ....Imaging EKG: Image Reviewed Assessment/Plan IMP: New left arm/hand numbness, + right occipital CVA History of ASHD REC: 1. Tele shows no AF thus far. Suggest extended outpt monitor 2. Cont ASA, statin, beta surinder; Plavix as per Neuro. 3. If Neuro feels JAKE indicated, can be arranged as outpt provided patient agrees to close f/u. Will follow
[2019-09-29] MEDS ORDERED: ASPIRIN COATED 81 MG TABLET.EC PO SCH (10:00)
[2019-09-29] MEDS: NICOTINE 14 MG/24 HOURS TOPICAL PATCH TD SCH (10:24)
--- NOTE | 2019-09-29 13:03 | PN ---
Progress Note (short form) - Note Progress Note: cc Left hand weakness and numbness HPI 64 year old male history of [place] s/p PCI, HTN, HLD, COPD, NIDDM, Smoker . Patient has been ahving left hand numbness and he woke up with these symptoms and was admitted for suspected stroke. Patient joselo any neck pain, no right arm pain. He does have tingling and numbness in lowere extremity, suspected ? neuropahty. His symptoms has improved. 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 no evidence of atrial fibrillation . advice to take plavix and stop aspirin, continue statin. Thanking you so much Dante Ramirez MD
--- NOTE | 2019-09-29 14:02 | PN ---
Teaching Attending Note Name of Resident: Toni Saldaña ATTENDING PHYSICIAN STATEMENT I saw and evaluated the patient. I reviewed the resident's note and discussed the case with the resident. I agree with the resident's findings and plan as documented. SUBJECTIVE: Feeling better. Less L hand numbness. Reports some clumsiness on using left hand but no weakness. OBJECTIVE: Afebrile, Hemodynamically Stable. Last Vital Signs Temp Pulse Resp BP Pulse Ox 98.5 F 73 18 136/73 95 09/29/19 10:09/29/19 10:09/29/19 10:09/29/19 10:09/29/19 09:00 HEENT - Atramatic, Normocephalic. Heart - S1, S2, RRR Lungs - clear to auscultation Abdomen - Soft, non-tender. Bowel Sounds normal. Extremities - no edema, no calf tenderness. Neuro - AAO x 3. Tone/Power normal all extremities. Sensation/Coordination intact. Laboratory Results - last 24 hr 09/28/19 09/28/19 09/29/19 17:01 21:48 06:10 WBC 8.1 RBC 5.22 Hgb 16.5 Hct 48.1 MCV 92.1 MCH 31.7 MCHC 34.4 RDW 12.8 Plt Count 308 MPV 7.8 Absolute Neuts (auto) 5.3 Neutrophils % 65.7 Lymphocytes % 20.1 Monocytes % 7.9 Eosinophils % 5.4 H Basophils % 0.9 Nucleated RBC % 0 Sodium Potassium Chloride Carbon Dioxide Anion Gap BUN Creatinine Est GFR (CKD-EPI)AfAm Est GFR (CKD-EPI)NonAf POC Glucometer 190 171 Random Glucose Calcium Magnesium Total Bilirubin AST ALT Alkaline Phosphatase Total Protein Albumin 09/29/19 09/29/19 09/29/19 06:10 06:12 11:28 WBC RBC Hgb Hct MCV MCH MCHC RDW Plt Count MPV Absolute Neuts (auto) Neutrophils % Lymphocytes % Monocytes % Eosinophils % Basophils % Nucleated RBC % Sodium 136 Potassium 4.1 Chloride 107 Carbon Dioxide 22 Anion Gap 7 L BUN 12.1 Creatinine 0.8 Est GFR (CKD-EPI)AfAm 110.96 Est GFR (CKD-EPI)NonAf 95.74 POC Glucometer 209 234 Random Glucose 184 H Calcium 8.9 Magnesium 1.8 Total Bilirubin 0.8 AST 10 L ALT 23 Alkaline Phosphatase 98 Total Protein 6.6 Albumin 3.4 Current Medications Generic Name Dose Route Start Last Admin Trade Name Freq PRN Reason Stop Dose Admin Acetaminophen 650 mg 09/27/19 16:27 09/28/19 15:14 Tylenol - PO 650 mg Q6H PRN Administration PAIN LEVEL 1-5 Atorvastatin Calcium 80 mg 09/28/19 22:00 09/28/19 21:56 Lipitor - PO 80 mg HS [facility] Administration Clopidogrel Bisulfate 75 mg 09/28/19 15:00 09/29/19 09:29 Plavix - PO 75 mg DAILY [facility] Administration Heparin Sodium (Porcine) 5,000 unit 09/27/19 22:00 09/29/19 09:29 Heparin - SQ 5,000 unit BID [facility] Administration Insulin Aspart 1 vial 09/28/19 22:00 09/29/19 11:29 Novolog Vial Sliding Scale - SQ 6 units ACHS [facility] Administration Protocol Insulin Detemir 5 units 09/28/19 22:00 09/28/19 21:49 Levemir Vial SQ 5 units HS [facility] Administration Lisinopril 10 mg 09/28/19 10:00 09/29/19 09:29 Prinivil PO 10 mg DAILY [facility] Administration Metoprolol Succinate 50 mg 09/28/19 10:00 09/29/19 09:29 Toprol Xl - PO 50 mg DAILY [facility] Administration Nicotine 14 mg 09/27/19 16:15 09/29/19 10:24 Nicoderm Patch - TD 14 mg DAILY [facility] Administration Home Medications Medication Instructions Recorded Aspirin 81 mg PO DAILY 09/27/19 Atorvastatin Ca [Lipitor] 80 mg PO DAILY 09/27/19 Lisinopril [Prinivil] 10 mg PO DAILY 09/27/19 Metoprolol Succinate [Toprol Xl] 50 mg PO DAILY 09/27/19 Sitagliptin Phosphate [Januvia] 100 mg PO DAILY 09/27/19 Acetaminophen [Tylenol] 650 mg PO PRN 09/28/19 Alcohol Antiseptic Pads [Alcohol 1 each TP TID #100 med..pad 09/28/19 Prep Pad] Aspirin Coated [Ecotrin -] 81 mg PO DAILY tablet.ec 09/28/19 Insulin Aspart [Novolog] 4 unit SQ TID #1 cartridge 09/28/19 Miscellaneous Medical Supply 1 each SQ ASDIR #1 kit 09/28/19 [Glucometer Device] Miscellaneous Medical Supply 1 each SQ TID #1 box 09/28/19 [Glucometer Test Strips #100] [place], Safety [Easy Touch 1 each MC TID #100 dis.needle 09/28/19 Fliplock Needle] ASSESSMENT AND PLAN: 64 year old male with history of CAD s/p [place] s/p PCI on Aspirin/Statin, HTN, HLD , COPD, DM 2, active smoker, presents with left hand numbness and tingling. MRI Brain - multiple acute/subacute lacunar infarcts in the right occipital lobe as well as in the right posterior frontal and parietal lobe superiorly. 1. Acute CVA Neurologically stable. No telemonitoring events - SR. Evaluated by Neurology - for switch from Aspirin to Plavix as pr Neuro Continue Lipitor 80mg Neurology out-patient follow up TTE and extended Holter as out-patient as per Cardiology 2. DM 2 - uncontrolled. AiC 11 Insulin sliding scale to be added to Januvia on discharge Endocrinology out-patient appt. 3. HTN - controlled. 4. HLD - on Statin Medically and Neurologically Stable for discharge with Neuro, Cardio, endocrinology follow ups.
[2019-09-29 15:39] VITALS: BP 126/72; PULSE 80; TEMP 98.3
--- NOTE | 2019-09-29 16:22 | DS ---
Physical Exam: SUBJECTIVE: Patient seen and examined OBJECTIVE: Vital Signs Period Temp Pulse Resp BP Sys/Boo Pulse Ox Last 24 Hr 98.0 F-98.5 F 65-80 18-18 123-139/3-83 95-95 PHYSICAL EXAM GENERAL: The patient is awake, alert, and fully oriented, in no acute distress. HEAD: Normal with no signs of trauma. EYES: PERRL, extraocular movements intact, sclera anicteric, conjunctiva clear. ENT: Ears normal, nares patent, oropharynx clear without exudates, moist mucous membranes. NECK: Trachea midline, full range of motion, supple. LUNGS: Breath sounds equal, clear to auscultation bilaterally, no wheezes, no crackles, no accessory muscle use. HEART: Regular rate and rhythm, S1, S2 without murmur, rub or gallop. ABDOMEN: Soft, nontender, nondistended, normoactive bowel sounds, no guarding, no rebound, no hepatosplenomegaly, no masses. EXTREMITIES: 2+ pulses, warm, well-perfused, no edema. NEUROLOGICAL: Cranial nerves II through XII grossly intact. Normal speech, gait not observed. PSYCH: Normal mood, normal affect. SKIN: Warm, dry, normal turgor, no rashes or lesions noted. LABS Laboratory Results - last 24 hr 09/28/19 09/28/19 09/29/19 17:01 21:48 06:10 WBC 8.1 RBC 5.22 Hgb 16.5 Hct 48.1 MCV 92.1 MCH 31.7 MCHC 34.4 RDW 12.8 Plt Count 308 MPV 7.8 Absolute Neuts (auto) 5.3 Neutrophils % 65.7 Lymphocytes % 20.1 Monocytes % 7.9 Eosinophils % 5.4 H Basophils % 0.9 Nucleated RBC % 0 Sodium Potassium Chloride Carbon Dioxide Anion Gap BUN Creatinine Est GFR (CKD-EPI)AfAm Est GFR (CKD-EPI)NonAf POC Glucometer 190 171 Random Glucose Calcium Magnesium Total Bilirubin AST ALT Alkaline Phosphatase Total Protein Albumin 09/29/19 09/29/19 09/29/19 06:10 06:12 11:28 WBC RBC Hgb Hct MCV MCH MCHC RDW Plt Count MPV Absolute Neuts (auto) Neutrophils % Lymphocytes % Monocytes % Eosinophils % Basophils % Nucleated RBC % Sodium 136 Potassium 4.1 Chloride 107 Carbon Dioxide 22 Anion Gap 7 L BUN 12.1 Creatinine 0.8 Est GFR (CKD-EPI)AfAm 110.96 Est GFR (CKD-EPI)NonAf 95.74 POC Glucometer 209 234 Random Glucose 184 H Calcium 8.9 Magnesium 1.8 Total Bilirubin 0.8 AST 10 L ALT 23 Alkaline Phosphatase 98 Total Protein 6.6 Albumin 3.4 HOSPITAL COURSE: Date of Admission:09/27/19 64 yo M w a hx of [place] s/p PCI on ASA, HTN, HLD, COPD, NIDDM, and heavy smoking history(currently 1 ppd) who presents with left hand numbness and tingling of few month duration and has since persisted is admitted for TIA. Pt was evaluated by neuro and MRI of the brain was ordered. Per brain MRI, multiple acute/subacute lacunar infarcts in the right occipital lobe as well as in the right posterior frontal and parietal lobe superiorly. We discussed findings with neurologist who recommended patient to be started on plavix 75mg daily and ASA to be d/lisa. Cardiology was consulted to determine cause of CVA, likely A- fib. Pt was monitored on tele but no A-fib was seen. Cardio recom JAKE if neurology felt it was necessary, however, neurology stated that it can be done outpt. Cardio also recom extended put pt monitoring. Pt was also found to have uncontrolled dm, does not check bgms at home and Hb1c 11.7. She was set up with insulin injections and supplies upon d/c. Pt was d/lisa home wiht plavix 75, insulin, supplies, and referral for cardio and neuro outpt. EKG sinus bradycardia 53 bpm no interval abnormalities, narrow QRS, ST and T wave segments and morphology normal. Nonspecific T wave abnormalities Head CT neg for acute pathology, MRI, multiple acute/subacute lacunar infarcts in the right occipital lobe as well as in the right posterior frontal and parietal lobe superiorly. Date of Discharge: 09/29/19 Minutes to complete discharge: 40 Discharge Summary Problems reviewed: Yes Reason For Visit: NUMBNESS AND TINGLING OF LEFT HAND Current Active Problems CVA (cerebral vascular accident) (Chronic) HLD (hyperlipidemia) (Chronic) HTN (hypertension) (Chronic) Condition: Improved - Instructions Diet, Activity, Other Instructions: Mr. Emery: You were admitted to the hospital for left arm weakness. While you were here, we evaluated with lab work, blood work, imaging including an MRI of your head. We found that your symptoms were caused by multiple small clots in your brain. We treated you with medications and your symptoms improved. To prevent any further clots in your brain, please follow the instructions below Please START taking Plavix 75 mg daily Please STOP taking Aspirin, you will no longer need it Please STOP smoking as this can increase your risk of having further strokes in your Brain. To help alleviate your cravings for smoking, Please START using nicotine patch 7 mg/patch daily You were also noted to have elevated glucose levels and an elevated HmgA1c which shows that your diabetes is uncontrolled. WE will be teaching you how to use a sliding scale and manage your diabetes. You will need to see your primary care doctor for follow up. Here is how you will be taking insulin 1. check your blood sugar three times before meals. 2. Follow this sliding scale: If your blood sugar is 101-150 do not give your self any insulin 151-200 give yourself 2 units 201-250 give yourself 4 units 251-300 give yourself 6 units 301-250 give yourself 8 units 351-400 give yourself 10 units Signs of low blood sugar: vomiting sweating excessive hunger dizziness lightheadedness If you experience any of these symptoms, check your blood sugars immediately. Take a glucose tablet if your blood sugars falls below 60 (Glucose tabs can be purchased in any pharmacy). Follow up: We have referred you to an employment programs analyst to better manage your diabetes. Please also see your primary care doctor. We have also referred you to the neurologist, Dr. Ramirez, please follow up with him within 1 week We have also provided you with a collections assistant, Dr. Chavarria, please follow up with him in 1 week Return to the emergency room, if you experience worsening of your symptoms, headaches, chest pain, weakness or any worsening of your condition. Thank you for allowing us to care for you Referrals: Dante Ramirez MD [Staff Physician] - 1 Week Mindi Almazan MD [Primary Care Provider] - 1 Week Bryant Knight MD [Staff Physician] - 1 Week Evaristo Jaramillo MD [Staff Physician] - 1 Week Disposition: HOME - Home Medications Comprehensive Discharge Medication List: Ambulatory Orders Atorvastatin Ca [Lipitor] 80 mg PO DAILY 09/27/19 Lisinopril [Prinivil] 10 mg PO DAILY 09/27/19 Metoprolol Succinate [Toprol Xl] 50 mg PO DAILY 09/27/19 Sitagliptin Phosphate [Januvia] 100 mg PO DAILY 09/27/19 Alcohol Antiseptic Pads [Alcohol Prep Pad] 1 each TP TID #100 med..pad 09/28/19 Insulin Aspart [Novolog] 4 unit SQ TID #1 cartridge 09/28/19 Miscellaneous Medical Supply [Glucometer Device] 1 each SQ ASDIR #1 kit [employer] [Glucometer Test Strips #100] 1 each SQ TID #1 box 09/28/19 [place], Safety [Easy Touch Fliplock Needle] 1 each MC TID #100 dis.needle 09/28 Clopidogrel Bisulfate [Plavix -] 75 mg PO DAILY #30 tablet 09/29/19 Nicotine Patch [Nicoderm Patch -] 1 patch TD DAILY #30 patch 09/29/19 This patient is new to me today: Yes Date on this admission: 09/30/19 Emergency Visit: Yes ED Registration Date: 09/27/19 Care time: The patient presented to the Emergency Department on the above date and was hospitalized for further evaluation of their emergent condition. Critical Care patient: No - Discharge Referral Referred to [facility] Med P.C.: No ATTENDING PHYSICIAN STATEMENT I saw and evaluated the patient. I reviewed the resident's note and discussed the case with the resident. I agree with the resident's findings and plan as documented. SUBJECTIVE: OBJECTIVE: ASSESSMENT AND PLAN:
== END 2019-09-29 17:58 | disposition home or self-care (01) | DRG 45 ==
LOC: JER 08:14 → JERBED 10:42 → J4S 18:44
DX: I63.9 Cerebral infarction, unspecified (principal); E11.65 Type 2 diabetes mellitus with hyperglycemia; G81.94 Hemiplegia, unspecified affecting left nondominant side; F17.210 Nicotine dependence, cigarettes, uncomplicated; I10 Essential (primary) hypertension; E78.5 Hyperlipidemia, unspecified; R20.0 Anesthesia of skin; R00.1 Bradycardia, unspecified; I25.10 Atherosclerotic heart disease of native coronary artery without angina pectoris; Z95.5 Presence of coronary angioplasty implant and graft; R29.701 NIHSS score 1
CPT/HCPCS: 36415; 70450-TC; 70498-TC; 70551-TC; 71046-TC-FY; 80053; 80061; 82550; 82962; 83036; 83721; 83735; 84484; 85025; 85610; 85730; 93005; 93010; 93306-TC; 93880-TC; 97116-GP; 97161-GP; 99285-25; G0008; J1644; Q2036; Q9967